=== PATIENT | female | born 1975 | race Asian ===

== ENCOUNTER → 2024-09-15 15:46 | Outpatient (CLI) | payer OTHER, SELFPAY ==
[2024-09-15 16:47] LABS: Add Manual Diff / Slide Review NO; Hematocrit 40.9 % (36-46); Hemoglobin 14.0 g/dL (12.0-16.0); Lymphocytes Absolute Auto 2000 /uL (1100-4500); Mean Corpuscular HGB Conc 34.1 % (30-36); Mean Corpuscular Hemoglobin 28.6 PG (26-34); Mean Corpuscular Volume 83.9 fL (80-100); Platelet Count 237 X10^3/uL (150-400)
[2024-09-15 16:55] LABS: Hemoglobin A1C% w Est Avg Glu 5.2 % (4.0-6.0)
[2024-09-15 17:23] LABS: Follicle Stimulating Hormone 51.2 mIU/mL
[2024-09-15 17:41] LABS: TSH w/ Reflex to FT4 2.02 uIU/mL (0.47-4.68)
== END ==
LOC: LAB 15:48
PROVIDERS: PCP Family Medicine; Referring Provider Family Medicine; Visit Provider Family Medicine
DX: N92.0 Excessive and frequent menstruation with regular cycle (principal); D21.9 Benign neoplasm of connective and other soft tissue, unspecified
CPT/HCPCS: 36415; 82397; 83001; 83036; 84443; 85025

== ENCOUNTER → 2024-11-13 06:46 | Outpatient (CLI) | payer OTHER, SELFPAY ==
--- NOTE | 2024-11-13 06:48 | DI.US.S_ITS ---
PROCEDURE: US PELVIC COMPLETE INDICATIONS: abd pain, bloating, conwstpation, assess for uterine abnml TECHNIQUE: Real-time scanning was performed of the pelvic organs, with image documentation. Additional endovaginal scanning was necessary due to incomplete visualization of the adnexal and endometrial structures by transabdominal scanning. COMPARISON: None. FINDINGS: Uterus: Uterus is anteverted and enlarged in size at 11.3 x 6.4 x 9.4 cm. The myometrium is heterogeneous The endometrium is not well defined.. There are 3 focal areas of heterogeneous echogenicity within the uterus. The largest is in the mid anterior subserosal region measuring 4.9 x 4.4 x 5.0 cm. There are 2 additional foci also within this region measuring 5.0 x 2.8 x 3.6 cm and 4.9 x 3.5 x 3.7 cm. Ovaries: Not visualized. Other: No pathologic free abdominal or pelvic fluid. IMPRESSION: Uterine fibroids. We strive to produce accurate, complete, and clear reports of imaging services. To assist us in improving patient care, this report was composed using standard report templates and voice recognition software. Therefore, it may contain abnormal punctuation, insertions and/or omissions. Occasional wrong-word or sound-alike substitutions may occur. Though we review the report and make efforts to correct it, we do recommend that the report be read carefully in proper context to recognize any text inaccuracies. Dictated by: Nisreen Rico M.D. on 11/13/2024 at 16:48 Approved by: Nisreen Rico M.D. on 11/13/2024 at 16:49
== END ==
PROVIDERS: PCP Family Medicine; Referring Provider Family Medicine; Visit Provider Family Medicine
DX: D25.2 Subserosal leiomyoma of uterus (principal); R10.9 Unspecified abdominal pain; R14.0 Abdominal distension (gaseous)
CPT/HCPCS: 76830; 76856